=== PATIENT | female | born 1955 | race Caucasian/White ===

== ENCOUNTER → 2016-10-21 | Outpatient (CLI) | payer BC ==
[~2016-10-21] MED LIST: TYLOTC500 PO
--- NOTE | 2016-10-21 08:36 | DIAGNOSTIC IMAGING REPORT ---
THYROID ULTRASOUND HISTORY: E01.0 Thyromegaly COMPARISON: Thyroid ultrasound 04/22/2011. FINDINGS: Right lobe: 4.8 x 2.2 x 1.7 cm. Dominant heterogeneous solid nodule within the mid to lower pole measuring 1.2 x 0.9 x 0.5 cm. No associated calcifications. There are few additional subcentimeter nodules/cysts measuring up to 4 mm. Left lobe: 6.4 x 3.2 x 3.0 cm. Dominant solid heterogeneous nodule measures 5.0 x 2.8 x 3.0 cm. This previously measured 3.4 x 2.8 x 2.3 cm. A few additional subcentimeter nodules. Isthmus: 5 mm in thickness. No nodules. IMPRESSION: Multinodular thyroid gland. Dominant 5 cm solid nodule within the left thyroid lobe has increased in size compared to the 2012 study. Electronically signed by: Akbar Flores M.D. 10/21/2016 8:35 AM Dictated Date/Time: 10/21/2016 8:29 AM
[2016-10-21 11:26] LABS: BASO % 1.8 %; BASO ABS # 0.05 K/uL (0-0.2); COMPLETE YES; EOS % 2.8 %; HEMATOCRIT 40.1 % (37-47); LYMPH % 35.3 %; MEAN CELL VOLUME 90.5 fL (80-100); MEAN CORPUSCULAR HEMOGLOBIN 29.6 pg (25-34); MEAN CORPUSCULAR HGB CONC 32.7 g/dl (32-36); MEAN PLATELET VOLUME 10.4 fL (7.4-10.4); MONO % 10.2 %; NEUT % 49.9 %; PLATELET COUNT 170 K/uL (130-400); RED BLOOD COUNT 4.43 M/uL (4.2-5.4); WHITE BLOOD COUNT 2.83 K/uL (4.8-10.8)
[2016-10-21 11:37] LABS: GLUCOSE 89 mg/dl (70-99)
[2016-10-21 11:38] LABS: BLOOD UREA NITROGEN 18 mg/dl (7-18); BUN/CREATININE RATIO 19.6 (10-20); CALCIUM 9.1 mg/dl (8.5-10.1); CARBON DIOXIDE 30 mmol/L (21-32); CHLORIDE 109 mmol/L (98-107); CHOLESTEROL 200 mg/dl (0-200); CREATININE 0.91 mg/dl (0.60-1.20); POTASSIUM 4.4 mmol/L (3.5-5.1); SODIUM 142 mmol/L (136-145); TRIGLYCERIDES 35 mg/dl (0-150); VERY LOW DENSITY LIPOPROT CALC 7 mg/dl
[2016-10-21 11:48] LABS: CHOLESTEROL/HDL RATIO 2.2; HDL CHOLESTEROL 89 mg/dl; LDL CHOLESTEROL CALCULATED 104 mg/dl; THYROID STIMULATING HORMONE 0.922 uIu/ml (0.300-4.500)
== END | disposition home or self-care (01) ==
LOC: C.ULTRBC 07:50
PROVIDERS: ATTEND Internal Medicine Endocrinology, Diabetes & Metabolism
DX: E06.3 Autoimmune thyroiditis (principal); E04.2 Nontoxic multinodular goiter

== ENCOUNTER → 2016-11-01 | Outpatient (CLI) | payer BC ==
--- NOTE | 2016-11-03 15:59 | MAMMOGRAPHY REPORT ---
BILATERAL DIGITAL SCREENING MAMMOGRAM TOMOSYNTHESIS WITH CAD: 11/01/2016 CLINICAL HISTORY: Routine screening. Patient has no complaints. TECHNIQUE: Breast tomosynthesis in addition to standard 2D mammography was performed. Current study was also evaluated with a Computer Aided Detection (CAD) system. COMPARISON: Comparison is made to exams dated: 10/29/2015 mammogram, 06/28/2014 mammogram, 04/26/2013 m ammogram, 04/18/2013 mammogram, 04/13/2012 mammogram, and 04/06/2011 mammogram - [facility]ter. BREAST COMPOSITION: The tissue of both breasts is extremely dense, which lowers the sensitivity of m ammography. FINDINGS: A linear scar marker overlies the 12:00 left breast. There is expected underlying architec tural distortion of the area of prior surgery. There are stable benign-appearing microcalcifications . Stable nodularity in the left breast. No suspicious spiculated or irregular mass, architectural d istortion or cluster of microcalcifications is seen. IMPRESSION: ACR BI-RADS CATEGORY 1: NEGATIVE There is no mammographic evidence of malignancy. A 1 year screening mammogram is recommended. The pa tient will receive written notification of the results. Approximately 10% of breast cancers are not detected with mammography. A negative mammographic report should not delay biopsy if a clinically suggestive mass is present. Yuni Katz M.D. ay/:11/02/2016 16:53:31 Snowmaker: Elvira CHIRINOS(Charissa)([place]), [facility] letter sent: Normal 1/2 BI-RADS Code: ACR BI-RADS Category 1: Negative
== END | disposition home or self-care (01) ==
LOC: C.MAMM 15:57
PROVIDERS: ATTEND Obstetrics & Gynecology
DX: Z12.31 Encounter for screening mammogram for malignant neoplasm of breast (principal)

== ENCOUNTER → 2017-01-28 | Outpatient (CLI) | payer BC | LOC: C.PAPS 11:50 | PROVIDERS: ATTEND Obstetrics & Gynecology | DX: Z01.419 Encounter for gynecological examination (general) (routine) without abnormal findings (principal) ==

== ENCOUNTER → 2017-03-09 | Outpatient (CLI) | payer BC | END | disposition home or self-care (01) | LOC: C.LABSPEC 17:07 | PROVIDERS: ATTEND Nurse Practitioner Adult Health | DX: J02.9 Acute pharyngitis, unspecified (principal); R50.9 Fever, unspecified ==

== ENCOUNTER → 2017-11-02 | Outpatient (CLI) | payer BC ==
--- NOTE | 2017-11-03 15:08 | MAMMOGRAPHY REPORT ---
BILATERAL DIGITAL SCREENING MAMMOGRAM TOMOSYNTHESIS WITH CAD: 11/02/2017 CLINICAL HISTORY: Routine screening. Patient has no complaints. TECHNIQUE: The study was acquired using full field digital technology and interpreted from soft copy. Breast tomosynthesis in addition to standard 2D mammography was performed. Current study was also ev aluated with a Computer Aided Detection (CAD) system. COMPARISON: Comparison is made to exams dated: 11/01/2016 mammogram, 10/29/2015 mammogram, 06/28/2014 m ammogram, 04/18/2013 mammogram, and 04/13/2012 mammogram - [facility]. BREAST COMPOSITION: The tissue of both breasts is extremely dense, which lowers the sensitivity of ma mmography. FINDINGS: There is a linear scar marker overlying the upper outer left breast. Stable groupings of b enign-appearing round calcifications and benign rim calcifications in the breasts. No suspicious mass , architectural distortion or cluster of microcalcifications is seen. IMPRESSION: ACR BI-RADS CATEGORY 1: NEGATIVE There is no mammographic evidence of malignancy. A 1 year screening mammogram is recommended.( [id number]) The patient will receive written notification of the results. Some breast cancers are not detected with mammography. A negative mammographic report should not kenyon y biopsy if a clinically suggestive mass is present. Yuni Katz M.D. ay/:11/02/2017 16:39:15 Ward Maid: RT Satya(Charissa)(M), [facility] letter sent: Normal 1/2 BI-RADS Code: ACR BI-RADS Category 1: Negative
== END | disposition home or self-care (01) ==
LOC: C.MAMM 16:05
PROVIDERS: ATTEND Family Medicine
DX: Z12.31 Encounter for screening mammogram for malignant neoplasm of breast (principal)